=== PATIENT | female | born 1985 | race Asian ===

== ENCOUNTER 2020-08-31 17:10 | Emergency (ER) | payer OTHER ==
[~2020-08-31] VITALS: Ht 162.6 cm; Wt 61.2 kg
[2020-08-31] MEDS ORDERED: Haloperidol 5mg/ml Inj IM ONE (17:15)
--- NOTE | 2020-08-31 17:19 | Emergency Room Report ---
History of Present Illness Present Illness HPI Disclaimer: Please note that this report is being documented using DRAGON technology. This can lead to erroneous entry secondary to incorrect interpretation by the dictating instrument. HPI: 35-year-old female, unknown history, presents from home by EMS secondary to apparent fentanyl overdose. EMS was called by boyfriend. He reported that she is fentanyl. She was found unresponsive. Given Narcan in route to ER, and on arrival patient awake and agitated and uncooperative Allergies: Coded Allergies: No Known Allergies (Unverified , 08/31/20) Patient History Reviewed Nursing Documentation: PMH: Agreed; PSxH: Agreed Review of Systems All Other Systems: negative except mentioned in HPI Physical Exam Sp02 EP Interpretation: reviewed, normal General Appearance: well appearing, other - Patient agitated Head: normocephalic, atraumatic Eyes: bilateral eye PERRL, bilateral eye EOMI ENT: hearing grossly normal, moist mucus membranes Neck: full range of motion, supple Respiratory: lungs clear, normal breath sounds, no rhonchi, no respiratory d istress, no retraction, no wheezing Cardiovascular #1: normal peripheral pulses, no murmur, tachycardia Gastrointestinal: non tender, soft, non-distended, no guarding Neurologic: alert, no focal defects, other - Patient yelling, uncooperative, does not answer questions Psychiatric: other - Patient agitated Skin: normal color, warm/dry Medical Decision Making ER Course MDM: Patient presented agitated after an alleged fentanyl overdose. Patient did receive Narcan prior to arrival. Unfortunately patient was extremely uncooperative requiring restraints and Haldol was given. Differential included but not limited to polysubstance abuse, overdose, agitated delirium to name a few Clinical course-after 1 hour of observation patient was alert, oriented, no acute distress, and requested to be discharged. She was discharged in the care of her friends. She had no recurrent respiratory depression in the ER. Vital signs stabilized. Labs - Laboratory Tests Test 08/31/20 17:29 White Blood Count 5.3 K/UL (4.8-10.8) Red Blood Count 4.47 M/UL (4.20-5.40) Hemoglobin 14.2 G/DL (12.0-16.0) Hematocrit 40.2 % (37.0-47.0) Mean Corpuscular Volume 90 FL (80-99) Mean Corpuscular Hemoglobin 31.9 PG (27.0-31.0) H Mean Corpuscular Hemoglobin Concent 35.4 G/DL (32.0-36.0) Red Cell Distribution Width 12.8 % (11.6-14.8) Platelet Count 239 K/UL (150-450) Mean Platelet Volume 6.1 FL (6.5-10.1) L Neutrophils (%) (Auto) 47.6 % (45.0-75.0) Lymphocytes (%) (Auto) 44.2 % (20.0-45.0) Monocytes (%) (Auto) 6.6 % (1.0-10.0) Eosinophils (%) (Auto) 0.1 % (0.0-3.0) Basophils (%) (Auto) 1.5 % (0.0-2.0) Sodium Level 135 MMOL/L (136-145) L Potassium Level 4.7 MMOL/L (3.5-5.1) Chloride Level 99 MMOL/L (98-107) Carbon Dioxide Level 23 MMOL/L (21-32) Anion Gap 13 mmol/L (5-15) Blood Urea Nitrogen 15 mg/dL (7-18) Creatinine 1.0 MG/DL (0.55-1.30) Estimated Glomerular Filtration Rate > 60 mL/min (>60) Glucose Level 205 MG/DL (74-106) H Calcium Level 8.9 MG/DL (8.5-10.1) Total Bilirubin 0.7 MG/DL (0.2-1.0) Aspartate Amino Transferase (AST) 33 U/L (15-37) Alanine Aminotransferase (ALT) 25 U/L (12-78) Alkaline Phosphatase 89 U/L (46-116) Total Protein 7.9 G/DL (6.4-8.2) Albumin 4.2 G/DL (3.4-5.0) Globulin 3.7 g/dL Albumin/Globulin Ratio 1.1 (1.0-2.7) On reevaluation: Patient alert, oriented, no acute distress dilatory without assistance Plan-discharged home. Discussed cessation of illicit drugs. Disposition: HOME, SELF-CARE Condition: Improved Gavin Logan M.D. Aug 31, 2020 17:19
[2020-08-31 17:32] VITALS: BP 159/103
--- NOTE | 2020-08-31 17:39 | NUR ---
ED Nurse Note: PATIENT WAS BROUGHT IN BY RA 29 FROM HOME. PER EMS, PT.'S BF CALLED 911 BECAUSE SHE TOOK UNK DOSE OF FENTANYL. PER EMS, PT. HAD A 1 DOSE OF NARCAN INTRANASALLY. PATIENT PRESENTED AWAKE, AAO X0, WITH PINPOINT PUPLS, SCREAMING OUT LOUD, KIKING, SENTENCES DO NOT MAKE SENCE. IV WAS ESTABLISHED ON RIGHT UPER ARM 22GA, BLOOD COLLECTED SENT TO LAB
[2020-08-31 18:04] LABS: BASOPHILS % (AUTO) 1.5 % (0.0-2.0); EOSINOPHILS % (AUTO) 0.1 % (0.0-3.0); HEMATOCRIT 40.2 % (37.0-47.0); HEMOGLOBIN 14.2 G/DL (12.0-16.0); LYMPHOCYTES % (AUTO) 44.2 % (20.0-45.0); MEAN CORPUSCULAR VOLUME 90 FL (80-99); MONOCYTES % (AUTO) 6.6 % (1.0-10.0); NEUTROPHILS % (AUTO) 47.6 % (45.0-75.0); PLATELET COUNT 239 K/UL (150-450); RED BLOOD COUNT 4.47 M/UL (4.20-5.40); RED CELL DISTRIBUTION WIDTH 12.8 % (11.6-14.8); WHITE BLOOD COUNT 5.3 K/UL (4.8-10.8)
[2020-08-31 18:07] LABS: ANION GAP 13 mmol/L (5-15); BLOOD UREA NITROGEN 15 mg/dL (7-18); CALCIUM 8.9 MG/DL (8.5-10.1); CARBON DIOXIDE 23 MMOL/L (21-32); CHLORIDE 99 MMOL/L (98-107); POTASSIUM 4.7 MMOL/L (3.5-5.1); SODIUM 135 MMOL/L (136-145)
[2020-08-31 18:10] VITALS: BP 159/103
--- NOTE | 2020-08-31 18:10 | NUR ---
ER DISCHARGE NOTE: Patient is cleared to be discharged per ERMD, pt is aox4, on room air, with stable vital signs. pt was given dc and prescription instructions, pt was able to verbalize understanding, pt id band and iv site removed without complications. pt is able to ambulate with steady gait. pt took all belongings.
[2020-08-31 18:12] LABS: ALANINE AMINOTRANSFERASE 25 U/L (12-78); ALBUMIN 4.2 G/DL (3.4-5.0); ALBUMIN/GLOBULIN RATIO 1.1 (1.0-2.7); ALKALINE PHOSPHATASE 89 U/L (46-116); ASPARTATE AMINO TRANSFERASE 33 U/L (15-37); BILIRUBIN,TOTAL 0.7 MG/DL (0.2-1.0)
== END 2020-08-31 18:10 | disposition home or self-care (01) ==
LOC: EDBD 17:10 → EMR 17:25
DX: T40.411A Poisoning by fentanyl or fentanyl analogs, accidental (unintentional), initial encounter (principal); R45.1 Restlessness and agitation; Y92.9 Unspecified place or not applicable
CPT/HCPCS: 36415; 80053; 85025; 96360; 96372; J1630; J7030; Z7502; 99284